=== PATIENT | male | born 1940 | race Caucasian/White ===

== ENCOUNTER 2020-04-23 09:07 | Outpatient (CLI) | payer MEDICARE, BC, SELFPAY ==
--- NOTE | 2020-04-23 09:15 | XR_ITS ---
WS: [id number] XR KUB [id number] REASON FOR EXAM: UROLITHIASIS FINDINGS: Examination is unchanged compared to 04/19/2018. No urinary tract calculi are identified. Moderate amount of stool throughout the colon. No free air or retroperitoneal air. No mass is identified. No significant bony abnormality. XR/XR KUB [id number] IMPRESSION: No urinary tract calculi identified.
== END 2020-04-23 09:08 | disposition home or self-care (01) ==
LOC: RAD 09:13
PROVIDERS: PCP Family Medicine; Visit Provider Urology
DX: N20.9 Urinary calculus, unspecified (principal)
CPT/HCPCS: 74018; 81003

== ENCOUNTER → 2020-11-27 14:06 | Outpatient (BNVA) | payer MEDICARE, BC, SELFPAY | PROVIDERS: PCP Family Medicine; Visit Provider Urology | DX: N20.0 Calculus of kidney (principal); N52.1 Erectile dysfunction due to diseases classified elsewhere | CPT/HCPCS: 81003 ==

== ENCOUNTER → 2021-03-26 10:05 | Outpatient (BNVA) | payer MEDICARE, BC, SELFPAY | PROVIDERS: PCP Family Medicine; Visit Provider Urology | DX: N52.1 Erectile dysfunction due to diseases classified elsewhere (principal) | CPT/HCPCS: 81003 ==

== ENCOUNTER 2021-04-23 10:08 | Outpatient (CLI) | payer MEDICARE, BC, SELFPAY ==
--- NOTE | 2021-04-23 10:15 | XRR_ITS ---
PROCEDURE INFORMATION: Exam: XR Abdomen Exam date and time: 04/23/2021 10:15 AM Age: 81 years old Clinical indication: Condition or disease; Kidney or ureter condition; Calculus (stone) in kidney; Prior surgery; Surgery type: Aneurysm, kidney stone removal; Additional info: Renal calculus TECHNIQUE: Imaging protocol: XR of the abdomen. Views: Frontal supine view of the abdomen. 1 View. COMPARISON: CR XR KUB [id number] 04/23/2020 9:22 AM FINDINGS: Gastrointestinal tract: Normal. No bowel dilation. Organs: No calcifications are seen in the projection of the kidneys, ureters or urinary bladder. Multiple phleboliths are present in the lower pelvis. Bones/joints: Unremarkable. XR/XR KUB [id number] IMPRESSION: No significant abnormality.
== END 2021-04-23 10:09 | disposition home or self-care (01) ==
LOC: RAD 10:13
PROVIDERS: PCP Family Medicine; Visit Provider Urology
DX: N20.0 Calculus of kidney (principal)
CPT/HCPCS: 74018; 81003

== ENCOUNTER → 2021-11-14 11:37 | Outpatient (BNVA) | payer MEDICARE, BC, SELFPAY | PROVIDERS: PCP Family Medicine; Visit Provider Family Medicine | DX: E78.5 Hyperlipidemia, unspecified (principal); I10 Essential (primary) hypertension; M65.30 Trigger finger, unspecified finger; K42.9 Umbilical hernia without obstruction or gangrene; M25.519 Pain in unspecified shoulder; N52.1 Erectile dysfunction due to diseases classified elsewhere; Z12.11 Encounter for screening for malignant neoplasm of colon | CPT/HCPCS: 80053; 80061; 85025 ==

== ENCOUNTER → 2021-11-19 08:39 | Outpatient (BNVA) | payer MEDICARE, BC, SELFPAY | PROVIDERS: PCP Family Medicine; Visit Provider Surgery | DX: Z12.11 Encounter for screening for malignant neoplasm of colon (principal) | CPT/HCPCS: 99203 ==

== ENCOUNTER → 2021-11-28 08:14 | Outpatient (BNVA) | payer MEDICARE, BC, SELFPAY | PROVIDERS: PCP Family Medicine; Visit Provider Family Medicine | DX: E87.5 Hyperkalemia (principal) | CPT/HCPCS: 80048 ==

== ENCOUNTER → 2022-01-20 15:00 | Outpatient (BNVA) | payer MEDICARE, BC, SELFPAY | PROVIDERS: PCP Family Medicine; Visit Provider Urology | DX: N20.9 Urinary calculus, unspecified (principal); N52.1 Erectile dysfunction due to diseases classified elsewhere | CPT/HCPCS: 99213 ==

== ENCOUNTER → 2022-01-21 08:34 | Outpatient (BNVA) | payer MEDICARE, BC, SELFPAY | PROVIDERS: PCP Family Medicine; Visit Provider Family Medicine | DX: R94.4 Abnormal results of kidney function studies (principal) | CPT/HCPCS: 80048 ==

== ENCOUNTER → 2022-02-02 10:46 | Outpatient (BNVA) | payer MEDICARE, BC, SELFPAY | PROVIDERS: PCP Family Medicine; Visit Provider Urology | DX: N20.9 Urinary calculus, unspecified (principal); N52.1 Erectile dysfunction due to diseases classified elsewhere | CPT/HCPCS: 81003 ==

== ENCOUNTER → 2022-04-22 09:37 | Outpatient (BNVA) | payer MEDICARE, BC, SELFPAY | PROVIDERS: PCP Family Medicine; Visit Provider Family Medicine | DX: I10 Essential (primary) hypertension (principal); N28.9 Disorder of kidney and ureter, unspecified | CPT/HCPCS: 80048 ==

== ENCOUNTER → 2022-07-21 14:07 | Outpatient (BNVA) | payer MEDICARE, BC, SELFPAY | PROVIDERS: PCP Family Medicine; Visit Provider Urology | DX: N52.1 Erectile dysfunction due to diseases classified elsewhere (principal); N20.9 Urinary calculus, unspecified | CPT/HCPCS: 81003; 99213 ==

== ENCOUNTER 2022-11-11 09:47 | Outpatient (CLI) | payer MEDICARE, BC, SELFPAY ==
--- NOTE | 2022-11-11 10:15 | MR_ITS ---
WS: [id number] MRI RIGHT SHOULDER HISTORY: M67.919 - Unspecified disorder of synovium and tendon, no trauma. COMPARISON: None available. TECHNIQUE: Multiplanar sequences of the shoulder joint are submitted. Moderate AC joint arthritis. Osteophytes encroaching upon the supraspinatus muscle and tendon. Small amount of fluid through the AC joint. Mild subacromial impingement. Small amount of fluid in the suba cromial and subdeltoid bursa. No os acromion. Split tear within the biceps tendon at the bicipital gr oove. Mildly high riding humeral head with mild glenohumeral joint narrowing. Marked fraying along both the bursal and articular surfaces of the supraspinatus tendon. Full thickness small tear extending throu gh the anterior most supraspinatus tendon. There is additional tendinopathy in the distal tendon. Abn ormal signal in the distal subscapularis tendon. There is marked thinning of the distal tendon with t he full-thickness tear. Infraspinatus tendon is normal. Moderate atrophy supraspinatus muscle. Degenerative changes within the labrum. Incomplete tear involving the base of the anterior labrum. MR/MR shoulder RT wo con* [id number] IMPRESSION: 1. Minimal full-thickness tear distal supraspinatus tendon with additional ten dinopathy. 2. Full-thickness tear distal subscapularis tendon with additional tendinopath y. 3. Moderate AC joint arthritis. 4. Mild subacromial impingement. 5. Split tear biceps tendon in the bicipital groove. 6. Focal tear anterior labrum. 7. Moderate supraspinatus muscle atrophy. 8. High riding humeral head and degenerative changes at the glenohumeral joint .
== END 2022-11-11 09:48 | disposition home or self-care (01) ==
PROVIDERS: PCP Family Medicine; Visit Provider Family Medicine
DX: M75.121 Complete rotator cuff tear or rupture of right shoulder, not specified as traumatic (principal); M67.919 Unspecified disorder of synovium and tendon, unspecified shoulder; M19.011 Primary osteoarthritis, right shoulder; M75.41 Impingement syndrome of right shoulder; S46.211A Strain of muscle, fascia and tendon of other parts of biceps, right arm, initial encounter; S43.491A Other sprain of right shoulder joint, initial encounter; S46.811A Strain of other muscles, fascia and tendons at shoulder and upper arm level, right arm, initial encounter; X58.XXXA Exposure to other specified factors, initial encounter; M62.511 Muscle wasting and atrophy, not elsewhere classified, right shoulder
CPT/HCPCS: 73221

== ENCOUNTER 2023-07-28 14:04 | Outpatient (CLI) | payer MEDICARE, BC, SELFPAY ==
--- NOTE | 2023-07-28 14:09 | USCV_ITS ---
Caleb Thomas Age: 83 Gender: M : 1940 Exam Date: 07/28/2023 14:22 Ordering Phys: Renetta Hearn MD Technologist: [place]am [place] [facility] [place] Indication: MURMUR BP: 150 / 80 HR: 48 Rhythm: Sinus Technical Quality: Adequate MEASUREMENTS (Male / Female) Normal Values 2D ECHO LV Diastolic Diameter PLAX 3.7 cm 4.2 - 5.9 / 3.9 - 5.3 cm IVS Diastolic Thickness 1.3 cm 0.6 - 1.0 / 0.6 - 0.9 cm IVS Systolic Thickness 1.6 cm LVPW Diastolic Thickness 1.3 cm 0.6 - 1.0 / 0.6 - 0.9 cm LVPW Systolic Thickness 1.3 cm LVOT Diameter 2.0 cm LV Ejection Fraction 2D Teich 3.2 % LV Ejection Fraction MOD 2C 58.5 % LV Ejection Fraction 2C AL 59.8 % LA Diameter 2.9 cm RA Systolic Volume 4C AL 26.9 ml RA Systolic Volume 4C MOD 25.7 ml Aorta at Sinotubular Diameter 2.7 cm IVC Diameter 2.6 cm M-MODE LA Ao Ratio MM 0.8 AV Cusp Separation MM 2.6 cm DOPPLER AV Peak Velocity 212.0 cm/s LVOT Peak Velocity 100.0 cm/s AV Area Cont Eq vti 1.6 cm squared AV Area Cont Eq pk 1.5 cm squared MV Peak Velocity 94.0 cm/s MV Area PHT 1.5 cm squared Mitral E to A Ratio 1.4 TV Peak Velocity 136.5 cm/s TR Peak Velocity 205.0 cm/s TR Peak Gradient 16.8 mmHg Right Atrial Pressure 3.0 mmHg Pulmonary Artery Systolic Pressu 19.8 mmHg PV Peak Velocity 98.0 cm/s FINDINGS Left Ventricle Moderate left ventricular hypertrophy. Normal left ventricular size and systolic function, EF 58% Right Ventricle The right ventricle is normal in size and function. Right Atrium The right atrium is normal in size. Left Atrium The left atrium is normal in size. Mitral Valve Thickened mitral valve. Mild-moderate mitral valve regurgitation. Aortic Valve Aortic valve sclerosis. Tricuspid Valve Trace tricuspid valve regurgitation. Pulmonic Valve No gross abnormalities noted Pericardium Normal pericardium without effusion. Aorta Normal ascending aorta dimension. IVC Normal inferior vena cava. CONCLUSIONS Moderate left ventricular hypertrophy. Normal left ventricular size and systolic function, EF 58% . Aortic valve sclerosis. Thickened mitral valve. Mild-moderate mitral valve regurgitation. Trace tricuspid valve regurgitation. Estimated pulmonary artery peak systolic pressure within normal limits There is no pericardial effusion. There are no intracardiac masses. No similar previous studies are available for comparison Dr Favio Soriano MD FAC (Electronically Signed) Final Date: 30 July 2023 17:12 S
== END 2023-07-28 14:05 | disposition home or self-care (01) ==
LOC: RAD 14:05
PROVIDERS: PCP Family Medicine; Visit Provider Internal Medicine Interventional Cardiology
DX: Z01.818 Encounter for other preprocedural examination (principal); I08.0 Rheumatic disorders of both mitral and aortic valves
CPT/HCPCS: 93306

== ENCOUNTER 2023-09-08 06:00 | Outpatient (RCR) | payer MEDICARE, BC, SELFPAY | END 2023-10-08 23:59 | disposition home or self-care (01) | LOC: APT 06:00 | PROVIDERS: Visit Provider Nurse Practitioner Adult Health | DX: Z47.1 Aftercare following joint replacement surgery (principal); Z96.611 Presence of right artificial shoulder joint | CPT/HCPCS: 97110; 97140; 97161; 97530 ==

== ENCOUNTER 2023-10-09 06:00 | Outpatient (RCR) | payer MEDICARE, BC, SELFPAY | END 2023-11-07 23:59 | disposition home or self-care (01) | LOC: APT 06:00 | PROVIDERS: Visit Provider Nurse Practitioner Adult Health | DX: Z47.1 Aftercare following joint replacement surgery (principal); Z96.611 Presence of right artificial shoulder joint | CPT/HCPCS: 97110; 97112; 97140; 97530 ==

== ENCOUNTER 2023-11-08 06:00 | Outpatient (RCR) | payer MEDICARE, BC, SELFPAY | END 2023-12-08 23:59 | disposition home or self-care (01) | LOC: APT 06:00 | PROVIDERS: Visit Provider Nurse Practitioner Adult Health | DX: Z47.1 Aftercare following joint replacement surgery (principal); Z96.611 Presence of right artificial shoulder joint | CPT/HCPCS: 97110; 97112; 97140; 97530 ==

== ENCOUNTER 2024-05-21 10:41 | Inpatient (IN) | payer MEDICARE, BC, SELFPAY ==
[2024-05-21] VITALS (16 sets, daily range): BP systolic 154–191; BP diastolic 72–100; PULSE 41–62; RESP 10–24; TEMP 36.3–36.4; O2SAT 93–99; BMI 20.9
--- NOTE | 2024-05-21 11:01 | ECG_ITS ---
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 Measurements Intervals [place] Rate: 53 P: 55 CA: 167 QRS: -51 QRSD: 113 T: 46 QT: 447 QTc: 423 Interpretive Statements SINUS BRADYCARDIA WITH FREQUENT VENTRICULAR PREMATURE COMPLEXES S1-S2-S3 PATTERN, CONSISTENT WITH PULMONARY DISEASE, RVH, OR NORMAL VARIANT LEFT ANTERIOR FASCICULAR BLOCK [QRS AXIS <= -45, QR IN I, RS IN II] MINIMAL ST DEPRESSION [0.025+ mV ST DEPRESSION] Compared to ECG 09/10/2017 11:10:04 Ventricular premature complex(es) now present Right ventricular hypertrophy now present ST (T wave) deviation now present Myocardial infarct finding no longer present Electronically Signed On 05-23-2024 23:56:49 COOLING PAN TENDER by Favio Soriano M.D. [id number]
--- NOTE | 2024-05-21 11:07 | XRR_ITS ---
PROCEDURE INFORMATION: Exam: XR Chest Exam date and time: 05/21/2024 11:13 AM Age: 84 years old Clinical indication: Shortness of breath; Prior surgery; Surgery date: 6+ months; Patient HX: C/O dizziness and palpitations for the past week. Intermittent SOB and has noticed that his oxygen sats have been low at home (93-94%). PT states that his hr does run low and was told that he needed a pacemaker in the past - didn't want it. Denies chest pain. HX aaa repair 20 yrs ago. ; Additional info: Short of breath TECHNIQUE: Imaging protocol: Radiologic exam of the chest. Views: 1 view. Total images: 1 COMPARISON: CT angio chest abd [id number] 11/15/2017 8:31 AM FINDINGS: Lungs: Benign granulomatous disease of the lung is noted. Pleural spaces: Unremarkable. No pleural effusion. No pneumothorax. Heart/Mediastinum: Unremarkable. No cardiomegaly. Vasculature: Moderate atherosclerotic disease burden is evident. Bones/joints: Right shoulder prosthesis partially visualized. Soft tissues: Postsurgical changes noted along the left chest wall unchanged. XR/XR chest 1V portable [id number] IMPRESSION: No acute cardiopulmonary process.
[2024-05-21 11:19] LABS: Basophils # 0.1 10^3/uL (0.0-0.1); Basophils % 1.1 %; Eosinophils # 0.4 10^3/uL (0.0-0.8); Eosinophils % 5.3 %; Lymphocytes # 2.2 10^3/uL (0.8-4.8); Lymphocytes % 30.2 %; Mean Corpuscular HGB Conc 32.7 g/dL (30-55); Mean Corpuscular Hemoglobin 31.9 pg (27-33); Mean Corpuscular Volume 97.6 fl (82-101); Mean Platelet Volume 9.5 fL (7.4-10.4); Monocytes # 0.6 10^3/uL (0.2-0.9); Monocytes % 8.8 %; Neutrophils # 3.89 10^3/uL (1.8-7.7); Neutrophils % 54.2 %; Nucleated Red Blood Cells % 0 %; Platelet Count 232 10^3/cmm (157-399); Red Blood Count 4.51 10^6/uL (3.85-5.65); Red Cell Distribution Width 12.7 % (12.1-15.1); White Blood Count 7.18 10^3/uL (3.29-11.43)
[2024-05-21 11:39] LABS: Troponin(5th) Baseline 12 ng/L (0-15)
[2024-05-21 11:46] LABS: Alanine Aminotransferase 12 U/L (0-41); Albumin Level 4.2 g/dL (3.5-5.2); Alkaline Phosphatase 97 U/L (40-130); Anion Gap 13.2 (5-19); Aspartate Amino Transferase 19 U/L (0-40); Blood Urea Nitrogen 26 mg/dL (8-23); Calcium 9.3 mg/dL (8.5-10.5); Carbon Dioxide 26 mmol/L (22-29); Chloride 105 mmol/L (98-107); Creatinine Clr Calc Pharmacy 56.3077; Globulin 2.8 g/dL (1.3-4.6); Glucose 93 mg/dL (65-115); Magnesium 1.9 mg/dL (1.7-2.3); NT Pro B Type Natriuretic Pept 152 pg/mL (0-450); Osmolality Calculated 294 mOsm/kg (285-295); Potassium 4.2 mmol/L (3.5-5.1); Sodium 140 mmol/L (136-145); Thyroid Stimulating Hormone 3.21 uIU/mL (0.27-4.20); Total Bilirubin 0.4 mg/dL (0.15-1.2)
[2024-05-21 13:07] LABS: Bilirubin Urine Negative (Negative); Blood Urine Negative (Negative); Glucose Urine UA Negative (Normal); Ketones Urine Negative (Negative); Leukocyte Esterase Urine Negative (Negative); Nitrate Urine Negative (Negative); Protein Urine 1+ (Negative); Specific Gravity, Urine 1.022 (1.005-1.030); Urine Appearance Clear (CLEAR); Urine Color Yellow (Yellow); Urobilinogen Urine 0.2 mg/dL (Negative); pH Urine 5.5 (5-7)
[2024-05-21 13:10] LABS: Add Urine Microscopic? YES; Bacteria Urine None Seen /hpf; Hyaline Casts Urine 0-4 /lpf; RBC Urine 0-2 /hpf (0-2); Squamous Epithelial Cell Urine 0-5 /hpf (0-5); WBC Urine 0-5 /hpf (0-5)
--- NOTE | 2024-05-21 13:16 | ED_ITS ---
HPI - Dizziness 2 General: Chief Complaint: Dizziness Stated Complaint: dizziness Time Seen by Provider: 05/21/24 11:06 History of Present Illness: HPI Narrative: 84-year-old male presents emergency depa rtment reporting episodes of dizziness and fatigue. 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 He was asked in the past whether he wanted to have a pacemaker; patient reports he was asymptomatic and therefore declined pacemaker. However, over the last week, something is changed and he now feels an irregular heartbeat, dizziness, fatigue. He has not had any chest pain, pressure, syncope, diaphoresis nausea or vomiting. He has no known heart disease other than some mild mitral valve disease. He does not take any beta-blockers or calcium channel blockers. He reports no neurologic symptoms nor any vertigo. He has not had any falls. Patient reports that his blood pressure machine is alarming him that he has an irregular pulse. Associated symptoms: Denies chest pain, chills, headache(s), nausea, syncope or vomiting Associated neuro symptoms: Deny numbness in extremities Related Data Home Medications Medication Instructions Recorded Confirmed tamsulosin 0.4 mg capsule 0.4 mg PO DAILY PRN 01/20/22 01/26/23 Previous Rx's Medication Instructions Recorded meloxicam 7.5 mg tablet 7.5 mg PO DAILY arthritis, 11/14/21 shoulder pain #20 tabs sildenafil 100 mg tablet (Viagra) 100 mg PO DAILY PRN sexual 06/01/22 activity #20 tabs tadalafil 20 mg tablet 20 mg PO DAILY PRN sexual activity 01/26/23 #90 tabs mupirocin 2 % topical ointment 1 applic topical BID #22 grams 10/25/23 lisinopril 20 mg tablet 60 mg (3 x 20 mg) .Route DAILY htn 11/19/23 90 days #270 tabs omeprazole 20 mg capsule,delayed See Rx Instructions .Route 11/19/23 release .COMPLEX #180 caps atorvastatin 10 mg tablet See Rx Instructions .Route 03/06/24 .COMPLEX #90 tabs Allergies Allergy/AdvReac Type Severity Reaction Status Date / Time No Known Allergies Allergy Unverified 06/29/23 09:24 Review of Systems 2 General: Reports: 10 or more systems reviewed and unremarkable except in HPI and below Const: Denies: fever(s), chills or body aches ENMT: Denies: throat pain Card: Denies: chest pain, edema or syncope Resp: Denies: dyspnea or productive cough GI: Denies: abdominal pain, nausea, vomiting or diarrhea : Denies: flank pain, dysuria or urinary frequency Musc: Denies: neck pain, back pain, extremity pain or extremity swelling Skin/Breast: Denies: rash or erythema Neuro: Denies: headache(s), numbness in extremities, weakness in extremities, lack of coordination or difficulty walking PFSH ED 2 PFSH: Medical History (Updated 05/21/24 @ 13:33 by Jamarcus Vargas MD) Arthritis Glaucoma HTN (hypertension) Hyperlipidemia GERD (gastroesophageal reflux disease) Urolithiasis Erectile disorder due to medical condition in male Surgical History Hx of colonoscopy 10 yrs ago History of esophagogastroduodenoscopy (EGD) 10 yrs ago possibly History of extraction of renal calculus S/P AAA repair Family History Father , AGE 74 Cancer Mother , at age 84 No problems noted. 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 He does have bradycardia with frequent PVCs on the monitor and in the regular pulse on palpation. Const: COMMON NORMALS: no limitations, alert and well nourished EXAM LIMITATIONS: no altered mental status HENMT: COMMON NORMALS: normocephalic, atraumatic and external ears normal H EAD & SCALP: normocephalic and atraumatic EXTERNAL EAR: Yes external ears normal MOUTH: no muffled voice Eye: COMMON NORMALS: EOMs intact bilaterally, conjunctivae normal and no scleral icterus CONJUNCTIVA: Yes conjunctivae normal Neck/C-Spine: COMMON NORMALS: no JVD GENERAL: Yes normal visual inspection and Yes trachea midline Resp: COMMON NORMALS: normal respiratory effort, No use of accessory muscles and clear to auscultation bilaterally AUSCULTATION: clear to auscultation bilaterally Cardio: COMMON NORMALS: no JVD GI: COMMON NORMALS: Soft to palpation and non-tender PALPATION: Yes Soft to palpation and No Guarding due to palpation present (GI) Extremity: COMMON NORMALS: normal to inspection Neuro: COMMON NORMALS: moves all extremities, no focal motor deficits and no sensory deficits noted SENSORIUM/ORIENTATION: Yes alert SPEECH: speech normal Psych: COMMON NORMALS: mental status grossly normal, Normal thought process present, cooperative, normal affect and speech normal SPEECH: Yes normal speech THOUGHT PROCESS: Normal thought process present Skin: COMMON NORMALS: no rashes or lesions noted, turgor normal and no jaundice GENERAL SKIN EXAM: no rashes or lesions noted and turgor normal Course 2 Vital Signs: Vital signs: Vital Signs Temperature 97.4 F L 05/21/24 10:51 Pulse Rate 47 L 05/21/24 13:00 Respiratory Rate 16 05/21/24 13:00 Blood Pressure 184/90 05/21/24 13:00 Pulse Oximetry 99 05/21/24 13:00 Oxygen Delivery Me thod Room Air 05/21/24 13:00 MDM - Dizziness Medical Decision Making Patient presenting with nonspecific dizziness. He has an irregular rhythm on exam and a bradycardia. His EKG which was obtained at 10:55 AM shows a sinus bradycardia with frequent PVCs. During the examination, patient had PVCs every 4-5 beats. Patient reports he can feel these and thinks this is what is causing his symptoms. The patient's electrolytes, blood sugar, acid-base status, hemoglobin, white blood cell count, TSH were all reassuring. Low suspicion for PE, unstable angina, pneumonia, neurologic dizziness. The patient's neurologic examination was normal. He has normal strength, normal coordination in his extremities, no aphasia, no visual disturbances Chest x-ray 1 view. No pulmonary edema, infiltrates, pneumothorax or effusions. This appears very likely to be related to his bradycardia with frequent PVCs. I discussed the case with Dr. Naranjo, director regulatory affairs. He advises that the patient be admitted overnight for telemetry. He is worried that the patient may intermittently have a heart block and wants to evaluate for this. If the patient is stable after a period of observation, then he may be a candidate for discharge and cardiology follow-up in clinic. However, if he is symptomatic or is developing heart block or other concerns, then the patient may need more timely cardiac intervention and possibly pacemaker. Discussed with patient and his . They are in agreement with the plan. Lab Data 05/21/24 11:10 05/21/24 11:10 Radiology Impressions Chest X-Ray 05/21/24 11:07 IMPRESSION: No acute cardiopulmonary process. Laboratory Results WBC 7.18 10^3/uL (3.29-11.43) 05/21/24 11:10 RBC 4.51 10^6/uL (3.85-5.65) 05/21/24 11:10 Hgb 14.40 g/dL (11.27-16.99) 05/21/24 11:10 Hct 44.0 % (37-53) 05/21/24 11:10 MCV 97.6 fl (82-101) 05/21/24 11:10 MCH 31.9 pg (27-33) 05/21/24 11:10 MCHC 32.7 g/dL (30-55) 05/21/24 11:10 RDW 12.7 % (12.1-15.1) 05/21/24 11:10 Plt Count 232 10^3/cmm (157-399) 05/21/24 11:10 MPV 9.5 fL (7.4-10.4) 05/21/24 11:10 Neut % (Auto) 54.2 % 05/21/24 11:10 Lymph % (Auto) 30.2 % 05/21/24 11:10 [place] % (Auto) 8.8 % 05/21/24 11:10 Eos % (Auto) 5.3 % 05/21/24 11:10 Baso % (Auto) 1.1 % 05/21/24 11:10 Neut # (Auto) 3.89 10^3/uL (1.8-7.7) 05/21/24 11:10 Lymph # (Auto) 2.2 10^3/uL (0.8-4.8) 05/21/24 11:10 [place] # (Auto) 0.6 10^3/uL (0.2-0.9) 05/21/24 11:10 Eos # (Auto) 0.4 10^3/uL (0.0-0.8) 05/21/24 11:10 Baso # (Auto) 0.1 10^3/uL (0.0-0.1) 05/21/24 11:10 Nucleated RBC % (auto) 0 % 05/21/24 11:10 Nucleated RBCs # 0.0 /100WBC 05/21/24 11:10 Sodium 140 mmol/L (136-145) 05/21/24 11:10 Potassium 4.2 mmol/L (3.5-5.1) 05/21/24 11:10 Chloride 105 mmol/L (98-107) 05/21/24 11:10 Carbon Dioxide 26 mmol/L (22-29) 05/21/24 11:10 Anion Gap 13.2 (5-19) 05/21/24 11:10 BUN 26 mg/dL (8-23) H 05/21/24 11:10 Creatinine 1.0 mg/dL (0.7-1.2) 05/21/24 11:10 GFR Calculation Not Reportable 05/21/24 11:10 Glucose 93 mg/dL (65-115) 05/21/24 11:10 Calculated Osmolality 294 mOsm/kg (285-295) 05/21/24 11:10 Calcium 9.3 mg/dL (8.5-10.5) 05/21/24 11:10 Magnesium 1.9 mg/dL (1.7-2.3) 05/21/24 11:10 Total Bilirubin 0.4 mg/dL (0.15-1.2) 05/21/24 11:10 AST 19 U/L (0-40) 05/21/24 11:10 ALT 12 U/L (0-41) 05/21/24 11:10 Alkaline Phosphatase 97 U/L (40-130) 05/21/24 11:10 Troponin T Baseline 12 ng/L (0-15) 05/21/24 11:10 NT-Pro-B Natriuret Pep 152 pg/mL (0-450) 05/21/24 11:10 Total Protein 7.0 g/dL (6.6-8.7) 05/21/24 11:10 Albumin 4.2 g/dL (3.5-5.2) 05/21/24 11:10 Globulin 2.8 g/dL (1.3-4.6) 05/21/24 11:10 TSH 3.21 uIU/mL (0.27-4.20) 05/21/24 11:10 Urine Color Yellow (Yellow) 05/21/24 12:30 Urine Appearance Clear (CLEAR) 05/21/24 12:30 Urine pH 5.5 (5-7) 05/21/24 12:30 Ur Specific [place] 1.022 (1.005-1.030) 05/21/24 12:30 Urine Protein 1+ (Negative) A 05/21/24 12:30 Urine Glucose (UA) Negative (Normal) 05/21/24 12:30 Urine Ketones Negative (Negative) 05/21/24 12:30 Urine Blood Negative (Negative) 05/21/24 12:30 Urine Nitrate Negative (Negative) 05/21/24 12:30 Urine Bilirubin Negative (Negative) 05/21/24 12:30 Urine Urobilinogen 0.2 mg/dL (Negative) 05/21/24 12:30 Ur Leukocyte Esterase Negative (Negative) 05/21/24 12:30 Urine RBC 0-2 /hpf (0-2) 05/21/24 12:30 Urine WBC 0-5 /hpf (0-5) 05/21/24 12:30 Ur Squamous Epith Cells 0-5 /hpf (0-5) 05/21/24 12:30 Amorphous Sediment Not Reportable 05/21/24 12:30 Urine Bacteria None seen /hpf (NONE) 05/21/24 12:30 Hyaline Casts 0-4 /lpf H 05/21/24 12:30 All radiology interpretation(s) finalized by discharge Discharge Plan Discharge Patient Disposition: Placed in Observation Clinical Impression: Symptomatic PVCs, Bradycardia, Dizziness Condition: Stable Prescriptions: No Action meloxicam 7.5 mg tablet 7.5 mg PO DAILY Qty: 20 0RF tamsulosin 0.4 mg capsule 0.4 mg PO DAILY PRN tadalafil 20 mg tablet 20 mg PO DAILY PRN (Reason: sexual activity) Qty: 90 3RF Rx Instructions: take 30min before sexual activity; do not use more than 1 dose per 24hrs sildenafil [Viagra] 100 mg tablet 100 mg PO DAILY PRN (Reason: sexual activity) Qty: 20 12RF Rx Instructions: 1 hour before use on empty stomach. No nitroglycerin mupirocin 2 % ointment 1 applic topical BID Qty: 22 0RF omeprazole 20 mg capsule,delayed release(DR/EC) See Rx Instructions .ROUTE .COMPLEX Qty: 180 3RF Dose Instruction: TAKE ONE CAPSULE BY MOUTH TWICE DAILY Rx Instructions: TAKE ONE CAPSULE BY MOUTH TWICE DAILY lisinopril 20 mg tablet 60 mg .ROUTE DAILY 90 Days Qty: 270 1RF Rx Instructions: 60 mg daily; take up to 3 tabs a day, as needed. atorvastatin 10 mg tablet See Rx Instructions .ROUTE .COMPLEX Qty: 90 3RF Dose Instruction: TAKE ONE TABLET BY MOUTH DAILY Rx Instructions: TAKE ONE TABLET BY MOUTH DAILY Coding Level of Care Code ED [employer] Ii Assembler for Andrew Orosco
--- NOTE | 2024-05-21 13:29 | ECG_ITS ---
[facility] Date: 2024-05[facility]21 Pat Name: Caleb Thomas Department: Room: Gender: Male Medical Support Assistant: : 1940 Requested By: Jamarcus Vargas Order Number: [id number] Reading MD: JENNIFER EAST Measurements Intervals [employer] Rate: 44 P: 47 UT: 177 QRS: -55 QRSD: 114 T: 30 QT: 497 QTc: 428 Interpretive Statements SINUS BRADYCARDIA WITH OCCASIONAL VENTRICULAR PREMATURE COMPLEXES S1-S2-S3 PATTERN, CONSISTENT WITH PULMONARY DISEASE, RVH, OR NORMAL VARIANT PATTERN CONSISTENT WITH PULMONARY DISEASE LEFT ANTERIOR FASCICULAR BLOCK [QRS AXIS <= -45, QR IN I, RS IN II] MINIMAL ST DEPRESSION [0.025+ mV ST DEPRESSION] Compared to ECG 05/21/2024 10:55:52 No significant changes Electronically Signed On 05-29-2024 23:32:31 CHAIN SPLITTER by JENNIFER EAST [id number]
[2024-05-21 13:30] LABS: Troponin 5 2HR 13.32 ng/L (0-15); Troponin 5 2HR Delta 1.32 ABS# (0-10)
--- NOTE | 2024-05-21 14:13 | USCV_ITS ---
Caleb Thomas Age: 84 Gender: M : 1940 Exam Date: 05/21/2024 15:05 Ordering Phys: Charles Sloan MD Technologist: Arik Colin [place] [facility] [place]: bradycardia BP: 178 / 101 HR: 42 Rhythm: Sinus Technical Quality: Adequate MEASUREMENTS (Male / Female) Normal Values 2D ECHO LV Diastolic Diameter PLAX 5.7 cm 4.2 - 5.9 / 3.9 - 5.3 cm IVS Diastolic Thickness 1.4 cm 0.6 - 1.0 / 0.6 - 0.9 cm IVS Systolic Thickness 1.7 cm LVPW Diastolic Thickness 1.3 cm 0.6 - 1.0 / 0.6 - 0.9 cm LVPW Systolic Thickness 2.6 cm LVOT Diameter 2.1 cm LV Ejection Fraction 2D Teich 65.5 % LV Ejection Fraction MOD 4C 62.6 % LV Ejection Fraction MOD 2C 61.3 % LV Ejection Fraction 2C AL 62.9 % LA Diameter 3.4 cm RA Systolic Volume 4C AL 34.2 ml RA Systolic Volume 4C MOD 35.0 ml LA Sys Volume AL 34.1 cm cubed LA Sys Volume Index AL 18.4 cm cubed/m squared IVC Diameter 1.6 cm M-MODE LA Ao Ratio MM 0.7 AV Cusp Separation MM 1.7 cm DOPPLER AV Peak Velocity 182.0 cm/s LVOT Peak Velocity 74.0 cm/s AV Area Cont Eq vti 1.5 cm squared AV Area Cont Eq pk 1.5 cm squared MV Peak Velocity 99.0 cm/s MV Area PHT 3.5 cm squared Mitral E to A Ratio 3.4 TV Peak Velocity 297.0 cm/s TR Peak Velocity 382.0 cm/s TR Peak Gradient 58.4 mmHg TR Mean Velocity 291.0 cm/s TR Mean Gradient 36.9 mmHg TR Velocity Time Integral 129.8 cm PV Peak Velocity 68.0 cm/s RV Ejection Time 0.3 s FINDINGS Left Ventricle Normal left ventricular size, systolic function and wall thickness, with no regional wall motion abnormalities. Left ventricular ejection fraction is estimated at 55%. Right Ventricle The right ventricle is normal in size and function. Right Atrium The right atrium is normal in size. Left Atrium The left atrium is normal in size. Mitral Valve Mildly thickened mitral valve. No mitral valve stenosis. Mild mitral valve regurgitation. Aortic Valve Moderate aortic valve calcification. No aortic valve stenosis. Trace aortic valve regurgitation. Tricuspid Valve Trace tricuspid valve regurgitation. Pulmonic Valve Trace pulmonary valve regurgitation. Pericardium Normal pericardium without effusion. Aorta Normal ascending aorta dimension. IVC The inferior vena cava appears normal. CONCLUSIONS Normal left ventricular size, systolic function and wall thickness, with no regional wall motion abnormalities. Left ventricular ejection fraction is estimated at 55%. Mildly thickened mitral valve. No mitral valve stenosis. Mild mitral valve regurgitation. Moderate aortic valve calcification. No aortic valve stenosis. Trace aortic valve regurgitation. There is no pericardial effusion. Right atrial pressure is around 5 mm of mercury. Chaitanya Tang MD (Electronically Signed) Final Date: 21 May 2024 18:19 S
--- NOTE | 2024-05-21 14:13 | PM.HP ---
Providers/Chief Complaint Chief Complaint: dizziness History of Present Illness Caleb Thomas is a 84 year old male with a past medical history of hypertension, hyperlipidemia history of bradycardia who presents to [facility] due to dizziness, unsteadiness. Patient tells me that he is very physically active, he was in the he has always been told that he has bradycardia, there has been discussions in the past about pacemaker placement in the past, which he has fought against, but he is always done well nonetheless, he has required some hospitalizations for bradycardia but always did well he tells me. He tells me that for the last 2 days he has been having dizziness, intermittently, but becoming more progressive and significant, no syncope, but feeling of a skipped beat, feeling dizzy, more profound when changing position, no chest pain, no nausea, no vomiting, no headache, no blurry vision, no diaphoresis. He tells me that if he needs a pacemaker placed he is agreeable, he just wants this to be done with, as he is very physically active, he tells me on Wednesday he was cutting logs, and he wants to get back to his life he does not want this to be something that holds him back. Denies a cardiovascular history no stents placed in his heart no history of heart failure no history of strokes. Review of Systems Const: Denies: fever(s) or chills Card: Reports: palpitations and lightheadedness; Denies: chest pain or dyspnea on exertion GI: Denies: abdominal pain Medications/Allergies Home Medications Medication Instructions Recorded Confirmed Last Taken Type meloxicam 7.5 mg tablet 7.5 mg PO DAILY arthritis, 11/14/21 01/26/23 Unknown Rx shoulder pain #20 tabs tamsulosin 0.4 mg capsule 0.4 mg PO DAILY PRN 01/20/22 01/26/23 Unknown History sildenafil 100 mg tablet (Viagra) 100 mg PO DAILY PRN sexual 06/01/22 01/26/23 Unknown Rx activity #20 tabs tadalafil 20 mg tablet 20 mg PO DAILY PRN sexual activity 01/26/23 01/26/23 Unknown Rx #90 tabs mupirocin 2 % topical ointment 1 applic topical BID #22 grams 10/25/23 Unknown Rx lisinopril 20 mg tablet 60 mg (3 x 20 mg) .Route DAILY htn 11/19/23 Unknown Rx 90 days #270 tabs omeprazole 20 mg capsule,delayed See Rx Instructions .Route 11/19/23 Unknown Rx release .COMPLEX #180 caps atorvastatin 10 mg tablet See Rx Instructions .Route 03/06/24 Unknown Rx .COMPLEX #90 tabs Allergies Allergy/AdvReac Type Severity Reaction Status Date / Time No Known Allergies Allergy Unverified 06/29/23 09:24 PFSH Acute PFSH: Medical History Arthritis Glaucoma HTN (hypertension) Hyperlipidemia GERD (gastroesophageal reflux disease) Urolithiasis Erectile disorder due to medical condition in male Surgical History Hx of colonoscopy 10 yrs ago History of esophagogastroduodenoscopy (EGD) 10 yrs ago possibly History of extraction of renal calculus S/P AAA repair Family History Father , AGE 74 Cancer Mother , at age 84 No problems noted. 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 Current gender identity: Male Vitals/I&O/Wt Last Vital Signs Temp 97.4 F L 05/21/24 10:51 Pulse 49 L 05/21/24 13:30 Resp 16 05/21/24 13:30 BP 178/83 05/21/24 13:30 Pulse Ox 96 05/21/24 13:30 O2 Del Method Room Air 05/21/24 13:30 Weight last 48 hrs Weight 68.039 kg Physical Exam Const: COMMON NORMALS: no acute distress and patient oriented x3 HENMT: COMMON NORMALS: normocephalic HEAD & SCALP: normocephalic Eye: COMMON NORMALS: Equal, round and reactive pupils present and EOMs intact bilaterally Neck/C-Spine: COMMON NORMALS: no JVD Resp: COMMON NORMALS: normal respiratory effort, No retractions, No use of accessory muscles and clear to auscultation bilaterally AUSCULTATION: clear to auscultation bilaterally Cardio: COMMON NORMALS: regular rate, regular rhythm, S1 normal heart sound present and S2 normal heart sound present RATE: bradycardic RHYTHM: regular rhythm HEART SOUNDS: S1 normal heart sound present and S2 normal heart sound present GI: COMMON NORMALS: Normal to inspection, nondistended, normoactive bowel sounds present, Soft to palpation and non-tender Extremity: COMMON NORMALS: no calf tenderness and no pedal edema Neuro: COMMON NORMALS: patient oriented x3, CN's II-XII intact bilaterally and moves all extremities Psych: COMMON NORMALS: mental status grossly normal Data 05/21/24 11:10 05/21/24 11:10 A&P Assessment and plan (1) Bradycardia: (2) Symptomatic PVCs: Plan Bradycardia, dizziness, symptomatic PVCs -Plan -Telemetry monitoring -Serial EKGs, troponins, telemetry monitoring -Cardiac echo -TSH, mag, lipid panel -Atropine as needed for heart rate less than 60, with hypotension, with symptoms -Full code -Lovenox for DVT prophylaxis -Patient is agreeable if pacemaker placement is required Attestations Medical Necessity Statement*: Patient requires hospitalization, outpatient observation, due to bradycardia, dizziness, symptomatic PVCs Diagnoses Bradycardia R00.1 Symptomatic PVCs I49.3
[2024-05-21 14:51] LABS: NT Pro B Type Natriuretic Pept 158 pg/mL (0-450)
--- NOTE | 2024-05-21 16:43 | PC.NURSE ---
pt given sandwich, jello, pudding and coke to eat and drink. Dr. Vargas aware and okayed.
[2024-05-21 17:22] LABS: Troponin 5 6HR 12.78 ng/L (0-15); Troponin 5 6HR Delta 0.78 ng/L (0-12)
--- NOTE | 2024-05-21 17:22 | ECG_ITS ---
[facility] Date: 2024-05[facility]21 Pat Name: Caleb Thomas Department: Room: EDIP Gender: Male Manager Community: : 1940 Requested By: Jamarcus Vargas Order Number: [id number] Reading MD: JENNIFER EAST Measurements Intervals [place] Rate: 54 P: 56 UT: 181 QRS: -87 QRSD: 122 T: 68 QT: 451 QTc: 431 Interpretive Statements SINUS BRADYCARDIA WITH OCCASIONAL VENTRICULAR PREMATURE COMPLEXES LEFT ANTERIOR FASCICULAR BLOCK [QRS AXIS <= -45, QR IN I, RS IN II] POSSIBLE LATERAL MYOCARDIAL INFARCTION , OF INDETERMINATE AGE [30 ms Q WAVE IN I/aVL/V5/V6] Compared to ECG 05/21/2024 13:29:51 Myocardial infarct finding now present Right ventricular hypertrophy no longer present ST (T wave) deviation no longer present Electronically Signed On 05-29-2024 23:32:27 STAMPING DIE MAKER BENCH by JENNIFER EAST [email or web address]
[2024-05-21] MEDS: enoxaparin 40 mg/0.4 mL Syringe SUBCUT (20:19)
[2024-05-21] MEDS: pantoprazole 40 mg SDV IVP (20:19)
[2024-05-21] MEDS: atorvastatin 40 mg Tablet 10 MG PO (20:19)
[2024-05-21 21:58] LABS: Chol HDL Ratio 2.85 mg/dL (1.0-5.00); Cholesterol 137 mg/dL (0-200); HDL Cholesterol 48 mg/dL (60-100); LDL Cholesterol Calculated 71 mg/dL (50-129); LDL HDL Ratio 1.48 RATIO (0.00-3.22); Triglycerides 88 mg/dL (0-150)
[2024-05-21 21:59] LABS: Estmated Average Glucose 117; Hemoglobin A1C 5.7 % (4.0-6.0)
[2024-05-22] VITALS: BP 129/68; PULSE 52; RESP 16; TEMP 36.6; O2SAT 93
[2024-05-22 04:00] VITALS: BP 130/72; PULSE 43; RESP 18; TEMP 36.7; O2SAT 96
[2024-05-22 05:12] LABS: Basophils # 0.1 10^3/uL (0.0-0.1); Basophils % 0.9 %; Eosinophils # 0.5 10^3/uL (0.0-0.8); Eosinophils % 6.1 %; Hematocrit 40.6 % (37-53); Lymphocytes # 2.5 10^3/uL (0.8-4.8); Lymphocytes % 33.6 %; Mean Corpuscular HGB Conc 32.5 g/dL (30-55); Mean Corpuscular Hemoglobin 32.8 pg (27-33); Mean Platelet Volume 9.9 fL (7.4-10.4); Monocytes # 0.7 10^3/uL (0.2-0.9); Monocytes % 9.3 %; Neutrophils # 3.73 10^3/uL (1.8-7.7); Neutrophils % 49.7 %; Nucleated Red Blood Cells % 0 %; Platelet Count 209 10^3/cmm (157-399); Red Blood Count 4.02 10^6/uL (3.85-5.65); Red Cell Distribution Width 12.8 % (12.1-15.1); White Blood Count 7.51 10^3/uL (3.29-11.43)
[2024-05-22 05:41] LABS: Anion Gap 12.4 (5-19); Blood Urea Nitrogen 25 mg/dL (8-23); Calcium 8.9 mg/dL (8.5-10.5); Carbon Dioxide 26 mmol/L (22-29); Chloride 107 mmol/L (98-107); Creatinine Clr Calc Pharmacy 51.1888; Glucose 99 mg/dL (65-115); Magnesium 1.9 mg/dL (1.7-2.3); Osmolality Calculated 296 mOsm/kg (285-295); Potassium 4.4 mmol/L (3.5-5.1); Sodium 141 mmol/L (136-145)
[2024-05-22] MEDS: lisinopril 20 mg Tablet 40 MG PO (08:05)
[2024-05-22 08:28] VITALS: BP 160/65; PULSE 51; RESP 18; TEMP 36.5; O2SAT 99
--- NOTE | 2024-05-22 09:30 | PC.CHAP ---
Pastoral Care Encounter/Spiritual Assessment Type of Contact [] Declined granite installer visit [] Patient/Family/Request visit [] Outpatient visit [] Follow-up visit [] Physician referral [] Code/Alert [x] Routine visit [] Staff referral [] Actively dying [] Patient sleeping [] Family support [] [] Out of room [] Palliative care [] [x] Receiving care in room [] Pre-surgical visit [] Trauma [] Long length of stay [] ICU visit [] Other: Relational/Emotional Strength [] Patient feels connected with others/family/visitors/staff [] Distress [] Loneliness/isolation [] Abandonment Spirituality of Patient [x] Person of Elysia [] Attends Synagogue of their Elysia [] Believes in Prayer [] Reads Bible or Orthodox materials [] There are Spiritual issues to be addressed Upper Cutter Out Interventions [] Prayer [] Active listening [] Non-anxious presence [] Spiritual/emotional support [] Crisis/trauma care [] Spiritual counseling [] Bereavement support [] Provided bereavement packet [] Provided Bible/devotional materials [] Provided toy/stuffed animal, coloring book to patient or family member [] Provided Communion [] Anointing/[facility] [] Salvation [] Completed spiritual assessment [] Other: Impact on Illness or Injury [] Angry [] Fearful [] Anxious [] Often cries [] Exhaustion [] Unable to work [] Unable to attend denominational [] Unable to walk/stand [] Unable to read [] Unable to drive [] Unable to eat/drink [] Unable to sleep [] Unable to be with family [] Patient intubated [] Other: Summary Time spent with patient
[2024-05-22 11:40] VITALS: BP 179/80; PULSE 52; RESP 19; TEMP 36.4; O2SAT 98
--- NOTE | 2024-05-22 14:15 | P.PN_ITS ---
Subjective 2 Subjective: Patient was seen this morning, no nausea, no vomiting, no headache, has intermittent dizziness, no other events overnight, no shortness of breath, no chest pain Vitals/I&O/Wt Last Vital Signs Temp 97.5 F L 05/22/24 11:40 Pulse 52 L 05/22/24 11:40 Resp 19 H 05/22/24 11:40 BP 179/80 05/22/24 11:40 Pulse Ox 98 05/22/24 11:40 O2 Del Method Room Air 05/22/24 11:40 05/21/24 05/22/24 05/22/24 22:59 06:59 14:59 Intake Total 120 / 120 240 / 360 960 / 960 Balance 120 / 120 240 / 360 960 / 960 Weight last 48 hrs Weight 68.039 kg Weight 68.039 kg Weight 68.039 kg Physical Exam 2 Const: COMMON NORMALS: no acute distress and patient oriented x3 Resp: COMMON NORMALS: normal respiratory effort, No retractions, No use of accessory muscles and clear to auscultation bilaterally AUSCULTATION: clear to auscultation bilaterally Cardio: COMMON NORMALS: regular rate, regular rhythm, S1 normal heart sound present and S2 normal heart sound present RATE: regular rate RHYTHM: r egular rhythm HEART SOUNDS: S1 normal heart sound present and S2 normal heart sound present GI: COMMON NORMALS: Normal to inspection, nondistended, normoactive bowel sounds present and non-tender Extremity: COMMON NORMALS: no pedal edema Neuro: COMMON NORMALS: patient oriented x3 Psych: COMMON NORMALS: mental status grossly normal Data 05/22/24 04:36 05/22/24 04:36 A&P Assessment and plan (1) Bradycardia: (2) Symptomatic PVCs: Plan Bradycardia, dizziness, symptomatic PVCs -Plan -Telemetry monitoring -Serial EKGs, troponins, telemetry monitoring -Cardiac echo CONCLUSIONS Normal left ventricular size, systolic function and wall thickness, with no regional wall motion abnormalities. Left ventricular ejection fraction is estimated at 55%. Mildly thickened mitral valve. No mitral valve stenosis. Mild mitral valve regurgitation. Moderate aortic valve calcification. No aortic valve stenosis. Trace aortic valve regurgitation. There is no pericardial effusion. Right atrial pressure is around 5 mm of mercury. -TSH, mag, lipid panel WNL -Atropine as needed for heart rate less than 60, with hypotension, with symptoms -Full code -Lovenox for DVT prophylaxis -Patient is agreeable if pacemaker placement is required -Spoke to cardiology, plan on treadmill stress echo tomorrow Attestations 2 Medical Necessity Statement*: Patient requires hospitalization for bradycardia, PVCs, proceeding with treadmill stress echo tomorrow Diagnoses Bradycardia R00.1 Symptomatic PVCs I49.3
[2024-05-22 16:00] VITALS: BP 180/74; PULSE 53; RESP 17; TEMP 36.5; O2SAT 95
[2024-05-22] MEDS: enoxaparin 40 mg/0.4 mL Syringe SUBCUT (17:41)
[2024-05-22] MEDS: pantoprazole 40 mg SDV IVP (17:41)
[2024-05-22 19:43] VITALS: BP 156/69; PULSE 54; RESP 16; TEMP 36.4; O2SAT 96
[2024-05-22] MEDS: atorvastatin 40 mg Tablet 10 MG PO (20:25)
--- NOTE | 2024-05-23 | ECG_ITS ---
[facility] Date[facility] 2024-[facility]-23 Pat Name: Caleb Thomas Department: Room: 254 Gender: Male Summer Babysitter: : 1940 Requested By: Charles Sloan Order Number: [id number] Dionisio MD: JENNIFER EAST Interpretive Statements Lung unchanged pre/post procedure; Intraprocedure shortess of breath; Symptoms resoled by discharge EXERCISE DATA: The patient was exercised by Alok protocol. Baseline heart rate was 62 beats per minute. Baseline blood pressure was 184/102 millimeters of mercury. Target heart rate was 136 beats per minute. Maximum heart rate achieved was 136, which was 100% of the target heart rate. Maximum blood pressure was 190/103 millimeters of mercury. Total exercise time was 6 minutes. Maximum METs achieved was 7.0, maximum VO2 was 24.5. The reason for ending the test was maximum effort achieved. The patient complained of shortness of breath during the stress test, which then resolved at the end of the test. ELECTROCARDIOGRAM: BASELINE: Showed sinus rhythm, left axis, interventricular conduction delay otherwise no significant ST-T changes at the baseline noted. EXERCISE: At the peak exercise level, no significant ST-T changes suggestive of ischemia noted. RECOVERY: During the recovery period, heart rate dropped appropriately. No significant ST-T changes in the recovery suggestive of ischemia noted. CONCLUSION: 1. Exercise capacity fair 2. Heart rate response was tachycardic. 3. Blood pressure response was hypertensive. 4. Symptoms not suggestive of ischemia. 5. Electrocardiogram portion of the stress test was not suggestive of ischemia. 6. Patient is chronotropically competent no intermittent heart block bradycardia noted 6. Echocardiographic portion of the stress test will be documented separately. Electronically Signed On 05-23-2024 18:02:55 OTTER TRAWLER BOATSWAIN by JENNIFER EAST [email or web address]
[2024-05-23 04:00] VITALS: BP 140/61; PULSE 52; RESP 14; TEMP 36.6; O2SAT 97
[2024-05-23 05:40] LABS: Basophils # 0.1 10^3/uL (0.0-0.1); Basophils % 0.9 %; Eosinophils # 0.4 10^3/uL (0.0-0.8); Eosinophils % 4.5 %; Hematocrit 41.1 % (37-53); Lymphocytes # 2.4 10^3/uL (0.8-4.8); Lymphocytes % 27.3 %; Mean Corpuscular HGB Conc 33.1 g/dL (30-55); Mean Corpuscular Hemoglobin 32.1 pg (27-33); Mean Corpuscular Volume 96.9 fl (82-101); Mean Platelet Volume 9.9 fL (7.4-10.4); Monocytes # 0.8 10^3/uL (0.2-0.9); Monocytes % 9.3 %; Neutrophils # 5.04 10^3/uL (1.8-7.7); Neutrophils % 57.7 %; Nucleated Red Blood Cells % 0 %; Platelet Count 208 10^3/cmm (157-399); Red Blood Count 4.24 10^6/uL (3.85-5.65); Red Cell Distribution Width 12.6 % (12.1-15.1); White Blood Count 8.73 10^3/uL (3.29-11.43)
[2024-05-23 05:46] VITALS: PULSE 51
[2024-05-23 06:27] LABS: Anion Gap 11.4 (5-19); Blood Urea Nitrogen 19 mg/dL (8-23); Calcium 8.9 mg/dL (8.5-10.5); Carbon Dioxide 26 mmol/L (22-29); Chloride 105 mmol/L (98-107); Creatinine Clr Calc Pharmacy 51.1888; Glucose 98 mg/dL (65-115); Osmolality Calculated 288 mOsm/kg (285-295); Potassium 4.4 mmol/L (3.5-5.1); Sodium 138 mmol/L (136-145)
[2024-05-23 08:00] VITALS: BP 139/69; PULSE 52; RESP 17; TEMP 36.4; O2SAT 96
[2024-05-23] MEDS: lisinopril 20 mg Tablet 40 MG PO (09:38)
[2024-05-23] MEDS: latanoprost 0.005% Op Soln 2.5 mL Btl 1 DROP EYE-BOTH (09:38)
--- NOTE | 2024-05-23 09:42 | PC.CHAP ---
Pastoral Care Encounter/Spiritual Assessment Type of Contact [] Declined hands assembler visit [] Patient/Family/Request visit [] Outpatient visit [] Follow-up visit [] Physician referral [] Code/Alert [x] Routine visit [] Staff referral [] Actively dying [] Patient sleeping [] Family support [] [] Out of room [] Palliative care [] [] Receiving care in room [] Pre-surgical visit [] Trauma [] Long length of stay [] ICU visit [] Other: Relational/Emotional Strength [x] Patient feels connected with others/family/visitors/staff [] Distress [] Loneliness/isolation [] Abandonment Spirituality of Patient [x] Person of Elysia [] Attends Amish of their Elysia [x] Believes in Prayer [] Reads Bible or Sikh materials [] There are Spiritual issues to be addressed Care Administrative Tech Interventions [x] Prayer [x] Active listening [] Non-anxious presence [x] Spiritual/emotional support [] Crisis/trauma care [] Spiritual counseling [] Bereavement support [] Provided bereavement packet [] Provided Bible/devotional materials [] Provided toy/stuffed animal, coloring book to patient or family member [] Provided Communion [] Anointing/[place] [] Salvation [x] Completed spiritual assessment [] Other: Impact on Illness or Injury [] Angry [] Fearful [] Anxious [] Often cries [] Exhaustion [] Unable to work [] Unable to attend church [] Unable to walk/stand [] Unable to read [] Unable to drive [] Unable to eat/drink [] Unable to sleep [] Unable to be with family [] Patient intubated [] Other: Summary Time spent with patient 10 min Pastoral Care Encounter/Spiritual Assessment Type of Contact [] Declined hands assembler visit [] Patient/Family/Request visit [] Outpatient visit [] Follow-up visit [] Physician referral [] Code/Alert [] Routine visit [] Staff referral [] Actively dying [] Patient sleeping [] Family support [] [] Out of room [] Palliative care [] [] Receiving care in room [] Pre-surgical visit [] Trauma [] Long length of stay [] ICU visit [] Other: Relational/Emotional Strength [] Patient feels connected with others/family/visitors/staff [] Distress [] Loneliness/isolation [] Abandonment Spirituality of Patient [] Person of Elysia [] Attends Amish of their Elysia [] Believes in Prayer [] Reads Bible or Sikh materials [] There are Spiritual issues to be addressed Care Administrative Tech Interventions [] Prayer [] Active listening [] Non-anxious presence [] Spiritual/emotional support [] Crisis/trauma care [] Spiritual counseling [] Bereavement support [] Provided bereavement packet [] Provided Bible/devotional materials [] Provided toy/stuffed animal, coloring book to patient or family member [] Provided Communion [] Anointing/[place] [] Salvation [] Completed spiritual assessment [] Other: Impact on Illness or Injury [] Angry [] Fearful [] Anxious [] Often cries [] Exhaustion [] Unable to work [] Unable to attend church [] Unable to walk/stand [] Unable to read [] Unable to drive [] Unable to eat/drink [] Unable to sleep [] Unable to be with family [] Patient intubated [] Other: Summary Time spent with patient
[2024-05-23 12:10] VITALS: BP 128/75; PULSE 44; RESP 17; TEMP 36.5; O2SAT 93
--- NOTE | 2024-05-23 13:00 | USCV_ITS ---
Caleb Thomas Age: 84 Gender: M : 1940 Exam Date: 05/23/2024 12:46 Ordering Phys: Charles Sloan MD Technologist: Exam Location: [facility] [place] Indication: Assess for Chornotropic Incompetence; chest pain Rhythm: Sinus Patient History: Chest pain, Hypertension Cardiac Medications: NONE Medications in past 24 hours: NONE Contrast: Stress Results Protocol: Alok Total dose(mL): Exercise Duration (min:sec): 06:00 METS: 7.0 Resting HR: 82 Resting BP: 184 / 102 Peak HR: 136 Peak BP: 190 / 103 Max Predicted HR: 136 100 % Max Predicted HR Target HR: 116 Double Product: [id number] Stress Summary: The patient's target heart rate was achieved BP Response: Abnormal increase in BP during/after stress Reason for Termination: Test terminated after reaching target heart rate (85% max predicted), Maximal effort/unable to continue Cardiac Symptoms: None ECG Analysis Resting ECG: Stress ECG: Arrhythmia: MEASUREMENTS (Male/Female) Normal Values FINDINGS Baseline: At rest left ventricular ejection fraction appeared to be normal and 55%, no wall motion abnormality Peak exercise level: Left ventricle cavity augmentation appeared to be good without any wall motion abnormality Recovery: No wall motion abnormality noted CONCLUSIONS Echocardiographic portion of the stress echo is not suggestive of ischemia Chaitanya Tang MD (Electronically Signed) Final Date: 23 May 2024 17:57 S
[2024-05-23 13:33] VITALS: BP 154/82; PULSE 70
[2024-05-23 15:57] VITALS: BP 145/65; PULSE 86; RESP 16; TEMP 36.8; O2SAT 95
--- NOTE | 2024-05-23 16:44 | P.PN_ITS ---
Subjective 2 Subjective: Patient was seen this morning, no acute events overnight, no lightheadedness, no dizziness, no chest pain Vitals/I&O/Wt Last Vital Signs Temp 98.3 F 05/23/24 15:57 Pulse 86 05/23/24 15:57 Resp 16 05/23/24 15:57 BP 145/65 05/23/24 15:57 Pulse Ox 95 05/23/24 15:57 O2 Del Method Room Air 05/23/24 15:57 Weight last 48 hrs Weight 68.039 kg Weight 68.039 kg Weight 68.039 kg Physical Exam 2 Const: COMMON NORMALS: no acute distress and patient oriented x3 Resp: COMMON NORMALS: normal respiratory effort, No retractions, No use of accessory muscles and clear to auscultation bilaterally AUSCULTATION: clear to auscultation bilaterally Cardio: COMMON NORMALS: regular rhythm, S1 normal heart sound present and S2 normal heart sound present RATE: bradycardic RHYTHM: regular rhythm H EART SOUNDS: S1 normal heart sound present and S2 normal heart sound present GI: COMMON NORMALS: Normal to inspection, nondistended, normoactive bowel sounds present, Soft to palpation and non-tender PALPATION: Yes Soft to palpation Extremity: COMMON NORMALS: no pedal edema Neuro: COMMON NORMALS: patient oriented x3 Psych: COMMON NORMALS: mental status grossly normal Data 05/23/24 05:05 05/23/24 05:05 A&P Assessment and plan (1) Bradycardia: (2) Symptomatic PVCs: Plan Bradycardia, dizziness, symptomatic PVCs -Plan -Telemetry monitoring -Serial EKGs, troponins, telemetry monitoring -Cardiac echo CONCLUSIONS Normal left ventricular size, systolic function and wall thickness, with no regional wall motion abnormalities. Left ventricular ejection fraction is estimated at 55%. Mildly thickened mitral valve. No mitral valve stenosis. Mild mitral valve regurgitation. Moderate aortic valve calcification. No aortic valve stenosis. Trace aortic valve regurgitation. There is no pericardial effusion. Right atrial pressure is around 5 mm of mercury. -TSH, mag, lipid panel WNL -Atropine as needed for heart rate less than 60, with hypotension, with symptoms -Full code -Lovenox for DVT prophylaxis -Patient is agreeable if pacemaker placement is required -Spoke to cardiology, normal stress echo today Attestations 2 Medical Necessity Statement*: Patient requires hospitalization for bradycardia Diagnoses Bradycardia R00.1 Symptomatic PVCs I49.3
--- NOTE | 2024-05-23 18:43 | P.CONIM_ITS ---
Providers/Reason For Consult 2 Consulting Physician/Specialty*: Chaitanya Tang MD Reason for Consult*: Bradycardia dizziness Requesting Physician: Dr. 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 He has noticed at multiple occasions that his heart rhythm becomes irregular at occasions, he felt dizzy while standing but did not think that he is going to pass out his pulse comes and goes most of the time when however he is standing he denies any dizziness while sitting or laying or passing out. Twelve-lead EKG was suggestive of sinus rhythm with PACs, he was monitored on the telemetry which ruled out significant bradycardia arrhythmia while awake most of the time his heart rate was into 50s, no A-fib or flutter noted on the telemetry. Electrolytes are within normal limits. Treadmill echocardiogram rule out ischemia and he was chronotropically competent he achieved 100% of the predicted heart rate. Review of Systems 2 General: Reports: 10 or more systems reviewed and unremarkable except in HPI and below Const: Denies: fever(s), chills or body aches ENMT: Denies: throat pain Card: Reports: palpitations and lightheadedness; Denies: chest pain, edema, syncope or dyspnea on exertion Resp: Denies: dyspnea or productive cough GI: Denies: abdominal pain, nausea, vomiting or diarrhea : Denies: flank pain, dysuria or urinary frequency Musc: Denies: neck pain, back pain, extremity pain or extremity swelling Skin/Breast: Denies: rash or erythema Neuro: Denies: headache(s), numbness in extremities, weakness in extremities, lack of coordination or difficulty walking Medications/Allergies Home Medications Medication Instructions Recorded Confirmed Last Taken Type meloxicam 7.5 mg tablet 7.5 mg PO DAILY arthritis, 11/14/21 05/21/2405/21/25 Rx shoulder pain #20 tabs sildenafil 100 mg tablet (Viagra) 100 mg PO DAILY PRN sexual 06/01/22 05/21/24 Unknown Rx activity #20 tabs tadalafil 20 mg tablet 20 mg PO DAILY PRN sexual activity 01/26/23 05/21/24 Unknown Rx #90 tabs mupirocin 2 % topical ointment 1 applic topical BID #22 grams 10/25/23 05/21/24 Unknown Rx lisinopril 20 mg tablet 60 mg (3 x 20 mg) .Route DAILY htn 11/19/23 05/21/24 05/21/24 Rx 90 days #270 tabs acetaminophen 325 mg tablet 650 mg PO QID PRN Pain 05/21/24 05/21/24 Unknown History (Tylenol) atorvastatin 10 mg tablet 5 mg PO DAILY 05/21/24 05/21/24 05/20/24 History ibuprofen 200 mg tablet (Advil) 600 mg PO Q6H PRN Pain 05/21/24 05/21/24 Unknown History latanoprost 0.005 % eye drops 1 drp ophthalmic (eye) QPM 05/21/24 05/21/24 05/20/24 History omeprazole 20 mg capsule,delayed 20 mg PO DAILY 05/21/24 05/21/24 05/21/24 History release Allergies Allergy/AdvReac Type Severity Reaction Status Date / Time No Known Allergies Allergy Unverified 06/29/23 09:24 Current Medications Generic Name Dose Route Start Last Admin Trade Name Freq PRN Reason Stop Dose Admin Atorvastatin Calcium 10 mg 05/21/24 21:00 05/22/24 20:25 Atorvastatin 40 Mg Tablet PO 10 mg BEDTIME CHUCKY Administration Enoxaparin Sodium 40 mg 05/21/24 19:39 05/22/24 17:41 Enoxaparin 40 Mg/0.4 Ml Syringe SUBCUT 40 mg Q24H CHUCKY Administration Latanoprost 1 drop 05/22/24 18:00 05/23/24 17:40 Latanoprost 0.005% Op Soln 2.5 Ml Btl EYE-BOTH Not Given QPM CHUCKY Lisinopril 40 mg 05/22/24 09:00 05/23/24 09:38 Lisinopril 20 Mg Tablet PO 40 mg DAILY CHUCKY Administration Pantoprazole Sodium 40 mg 05/21/24 19:39 05/22/24 17:41 Pantoprazole 40 Mg Sdv IVP 40 mg Q24H CHUCKY Administration PFSH Acute 2 PFSH: Medical History Arthritis Glaucoma HTN (hypertension) Hyperlipidemia GERD (gastroesophageal reflux disease) Urolithiasis Erectile disorder due to medical condition in male Surgical History Hx of colonoscopy 10 yrs ago History of esophagogastroduodenoscopy (EGD) 10 yrs ago possibly History of extraction of renal calculus S/P AAA repair Family History Father , AGE 74 Cancer Mother , at age 84 No problems noted. 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 HEART: Regular S1 and S2. No murmur, rub or gallop. LUNGS: Clear to auscultate bilaterally. CENTRAL NERVOUS SYSTEM: Grossly nonfocal. EXTREMITIES: Lower extremities with out edema bilaterally. Data 05/23/24 05:05 05/23/24 05:05 A&P Assessment and plan (1) Bradycardia: (2) Dizziness: (3) Hypertension: (4) Irregular heartbeat: Plan On telemetry no significant bradycardia or tachyarrhythmia noted, no heart block was seen. He was chronotropically competent and rule out for ischemia with stress echo. Most likely irregular heartbeat or PACs and PVCs. At this point will recommend event monitor for 30 days and follow-up with cardiology as an outpatient. Patient has been discussed in detail regarding lifestyle modification such as trying to stand up he should wait for 30 seconds and then walk once he is not dizzy. Dizziness could be secondary to vertebral basilar or labyrinth system related at this point no cardiovascular etiology is evident. After reviewing event monitor further plan will be advised. Patient is encouraged to call our clinic if he has any more symptoms. He is advised to monitor his heart rate as well. Consult Attestations 2 Medical Necessity Statement: From cardiovascular perspective patient can be discharged home Coding Level of Care Code Acute Code for [facility] Diagnoses Bradycardia R00.1 Dizziness R42 Hypertension I10 Irregular heartbeat I49.9
--- NOTE | 2024-05-24 08:19 | P.DS_ITS ---
Discharge Providers Date of Admission: 05/22/24 10:08 Date of Discharge: May 24, 2024 Attending Provider at Admission: Charles Sloan MD Attending Provider at Discharge: Charles Sloan MD Diagnoses at Discharge Discharge Diagnosis (1) Bradycardia: Status: Acute (2) Dizziness: Status: Resolved (3) Hypertension: Status: Acute (4) Irregular heartbeat: Status: Acute Reason for Visit Reason for Visit: dizziness Hospital Course Hospital Course Caleb Thomas is a 84 year old male with a past medical history of hypertension, hyperlipidemia history of bradycardia who presents to [facility] due to dizziness, unsteadiness. Patient tells me that he is very physically active, he was in the he has always been told that he has bradycardia, there has been discussions in the past about pacemaker placement in the past, which he has fought against, but he is always done well nonetheless, he has required some hospitalizations for bradycardia but always did well he tells me. He tells me that for the last 2 days he has been having dizziness, intermittently, but becoming more progressive and significant, no syncope, but feeling of a skipped beat, feeling dizzy, more profound when changing position, no chest pain, no nausea, no vomiting, no headache, no blurry vision, no diaphoresis. He tells me that if he needs a pacemaker placed he is agreeable, he just wants this to be done with, as he is very physically active, he tells me on Wednesday he was cutting logs, and he wants to get back to his life he does not want this to be something that holds him back. Denies a cardiovascular history no stents placed in his heart no history of heart failure no history of strokes. Patient presented to [facility] for bradycardia, dizziness, symptomatic PVCs, monitored as inpatient -No significant bundle-branch blocks or AV blocks or arrhythmia events on telemetry monitoring as inpatient -He was relatively asymptomatic, ambulating in the hospital, normotensive -Even with his bradycardic episodes as inpatient, most significant episodes happened while he was sleeping -And with his bradycardic episodes, he was normotensive, relatively asymptomatic as inpatient -No strokelike symptoms, no facial droop, slurring words, no focal weakness, no cerebellar signs Cardiac echo -CONCLUSIONS Normal left ventricular size, systolic function and wall thickness, with no regional wall motion abnormalities. Left ventricular ejection fraction is estimated at 55%. Mildly thickened mitral valve. No mitral valve stenosis. Mild mitral valve regurgitation. Moderate aortic valve calcification. No aortic valve stenosis. Trace aortic valve regurgitation. There is no pericardial effusion. Right atrial pressure is around 5 mm of mercury. Cardiac stress echo FINDINGS Baseline: At rest left ventricular ejection fraction appeared to be normal and 55%, no wall motion abnormality Peak exercise level: Left ventricle cavity augmentation appeared to be good without any wall motion abnormality Recovery: No wall motion abnormality noted CONCLUSIONS Echocardiographic portion of the stress echo is not suggestive of ischemia -Chronotropically competent on stress echo -Discussed risk and benefits of pacemaker placement, he might require it at some point however so far his testing has been relatively within normal limits, he has been relatively asymptomatic, with his bradycardia during his hospitalization no significant symptomatology or hemodynamic compromise and his more significant episodes happened while he was sleeping -For his PVCs, he is not a candidate for any beta-omar or antiarrhythmic with bradycardia -Cardiology was consulted -As patient was relatively asymptomatic, with testing as above with him in reasonable range, no recurrent symptomatology he will be discharged with event monitor in place, with a close follow-up cardiology as outpatient ? Patient was advised if he were to have any lightheadedness or dizziness or chest pain or syncope or symptomatic bradycardia come to the emergency room Physical Exam Const: COMMON NORMALS: no acute distress and patient oriented x3 Neck/C-Spine: COMMON NORMALS: no JVD Resp: COMMON NORMALS: normal respiratory effort, No retractions, No use of accessory muscles and clear to auscultation bilaterally AUSCULTATION: clear to auscultation bilaterally Cardio: COMMON NORMALS: no JVD, regular rhythm, S1 normal heart sound present and S2 normal heart sound present RATE: bradycardic RHYTHM: regular rhythm HEART SOUNDS: S1 normal heart sound present and S2 normal heart sound present GI: COMMON NORMALS: Normal to inspection, nondistended, normoactive bowel sounds present and non-tender Extremity: COMMON NORMALS: no pedal edema Neuro: COMMON NORMALS: patient oriented x3 Psych: COMMON NORMALS: mental status grossly normal Discharge Data Studies Completed and Pending Completed Studies During Hospitalization Category Date Time Status Cardiac Stress Test Request Routine Exams 05/23/24 06:26 Completed XR chest 1V portable [id number] Stat Exams 05/21/24 11:07 Completed CV. echo complete* [id number] Stat Ultrasound 05/21/24 14:13 Completed CV. echo stress wo contr [id number] Routine Ultrasound 05/23/24 13:00 Completed Pending at discharge Category Date Time Status Cardiac Stress Test Request Routine Exams 05/22/24 10:57 Stop Req Radiology Impressions Chest X-Ray 05/21/24 11:07 IMPRESSION: No acute cardiopulmonary process. Laboratory Results WBC 8.73 10^3/uL (3.29-11.43) 05/23/24 05:05 RBC 4.24 10^6/uL (3.85-5.65) 05/23/24 05:05 Hgb 13.60 g/dL (11.27-16.99) 05/23/24 05:05 Hct 41.1 % (37-53) 05/23/24 05:05 MCV 96.9 fl (82-101) 05/23/24 05:05 MCH 32.1 pg (27-33) 05/23/24 05:05 MCHC 33.1 g/dL (30-55) 05/23/24 05:05 RDW 12.6 % (12.1-15.1) 05/23/24 05:05 Plt Count 208 10^3/cmm (157-399) 05/23/24 05:05 MPV 9.9 fL (7.4-10.4) 05/23/24 05:05 Neut % (Auto) 57.7 % 05/23/24 05:05 Lymph % (Auto) 27.3 % 05/23/24 05:05 [place] % (Auto) 9.3 % 05/23/24 05:05 Eos % (Auto) 4.5 % 05/23/24 05:05 Baso % (Auto) 0.9 % 05/23/24 05:05 Neut # (Auto) 5.04 10^3/uL (1.8-7.7) 05/23/24 05:05 Lymph # (Auto) 2.4 10^3/uL (0.8-4.8) 05/23/24 05:05 [place] # (Auto) 0.8 10^3/uL (0.2-0.9) 05/23/24 05:05 Eos # (Auto) 0.4 10^3/uL (0.0-0.8) 05/23/24 05:05 Baso # (Auto) 0.1 10^3/uL (0.0-0.1) 05/23/24 05:05 Nucleated RBC % (auto) 0 % 05/23/24 05:05 Nucleated RBCs # 0.0 /100WBC 05/23/24 05:05 Sodium 138 mmol/L (136-145) 05/23/24 05:05 Potassium 4.4 mmol/L (3.5-5.1) 05/23/24 05:05 Chloride 105 mmol/L (98-107) 05/23/24 05:05 Carbon Dioxide 26 mmol/L (22-29) 05/23/24 05:05 Anion Gap 11.4 (5-19) 05/23/24 05:05 BUN 19 mg/dL (8-23) 05/23/24 05:05 Creatinine 1.1 mg/dL (0.7-1.2) 05/23/24 05:05 GFR Calculation Not Reportable 05/23/24 05:05 Glucose 98 mg/dL (65-115) 05/23/24 05:05 Estimat Average Glucose 117 05/21/24 11:10 Hemoglobin A1c 5.7 % (4.0-6.0) 05/21/24 11:10 Calculated Osmolality 288 mOsm/kg (285-295) 05/23/24 05:05 Calcium 8.9 mg/dL (8.5-10.5) 05/23/24 05:05 Magnesium 1.9 mg/dL (1.7-2.3) 05/22/24 04:36 Total Bilirubin 0.4 mg/dL (0.15-1.2) 05/21/24 11:10 AST 19 U/L (0-40) 05/21/24 11:10 ALT 12 U/L (0-41) 05/21/24 11:10 Alkaline Phosphatase 97 U/L (40-130) 05/21/24 11:10 Troponin T Baseline 12 ng/L (0-15) 05/21/24 11:10 Troponin T 120 Minute 13.32 ng/L (0-15) 05/21/24 13:05 Delta Troponin T 1.32 ABS# (0-10) 05/21/24 13:05 Troponin T Hi Sens 6Hr 12.78 ng/L (0-15) 05/21/24 16:53 Troponin T Hi Sens 6Hr Delta 0.78 ng/L (0-12) 05/21/24 16:53 NT-Pro-B Natriuret Pep 158 pg/mL (0-450) 05/21/24 14:20 Total Protein 7.0 g/dL (6.6-8.7) 05/21/24 11:10 Albumin 4.2 g/dL (3.5-5.2) 05/21/24 11:10 Globulin 2.8 g/dL (1.3-4.6) 05/21/24 11:10 Triglycerides 88 mg/dL (0-150) 05/21/24 11:10 Cholesterol 137 mg/dL (0-200) 05/21/24 11:10 LDL Cholesterol, Calc 71 mg/dL (50-129) 05/21/24 11:10 HDL Cholesterol 48 mg/dL (60-100) L 05/21/24 11:10 LDL/HDL Ratio 1.48 RATIO (0.00-3.22) 05/21/24 11:10 Cholesterol/HDL Ratio 2.85 mg/dL (1.0-5.00) 05/21/24 11:10 TSH 3.21 uIU/mL (0.27-4.20) 05/21/24 11:10 Urine Color Yellow (Yellow) 05/21/24 12:30 Urine Appearance Clear (CLEAR) 05/21/24 12:30 Urine pH 5.5 (5-7) 05/21/24 12:30 Ur Specific [place] 1.022 (1.005-1.030) 05/21/24 12:30 Urine Protein 1+ (Negative) A 05/21/24 12:30 Urine Glucose (UA) Negative (Normal) 05/21/24 12:30 Urine Ketones Negative (Negative) 05/21/24 12:30 Urine Blood Negative (Negative) 05/21/24 12: Urine Nitrate Negative (Negative) 05/21/24 12:30 Urine Bilirubin Negative (Negative) 05/21/24 12:30 Urine Urobilinogen 0.2 mg/dL (Negative) 05/21/24 12:30 Ur Leukocyte Esterase Negative (Negative) 05/21/24 12:30 Urine RBC 0-2 /hpf (0-2) 05/21/24 12:30 Urine WBC 0-5 /hpf (0-5) 05/21/24 12:30 Ur Squamous Epith Cells 0-5 /hpf (0-5) 05/21/24 12:30 Amorphous Sediment Not Reportable 05/21/24 12:30 Urine Bacteria None seen /hpf (NONE) 05/21/24 12:30 Hyaline Casts 0-4 /lpf H 05/21/24 12:30 Vitals Last Vital Signs Temp 98.3 F 05/23/24 15:57 Pulse 86 05/23/24 15:57 Resp 16 05/23/24 15:57 BP 145/65 05/23/24 15:57 Pulse Ox 95 05/23/24 15:57 O2 Del Method Room Air 05/23/24 15:57 Discharge Plan Discharge Patient Disposition: Home Condition: Stable Prescriptions: Continued meloxicam 7.5 mg tablet 7.5 mg PO DAILY Qty: 20 0RF tadalafil 20 mg tablet 20 mg PO DAILY PRN (Reason: sexual activity) Qty: 90 3RF Rx Instructions: take 30min before sexual activity; do not use more than 1 dose per 24hrs sildenafil [Viagra] 100 mg tablet 100 mg PO DAILY PRN (Reason: sexual activity) Qty: 20 12RF Rx Instructions: 1 hour before use on empty stomach. No nitroglycerin mupirocin 2 % ointment 1 applic topical BID Qty: 22 0RF lisinopril 20 mg tablet 60 mg .ROUTE DAILY 90 Days Qty: 270 1RF Rx Instructions: 60 mg daily; take up to 3 tabs a day, as needed. latanoprost 0.005 % drops 1 drp ophthalmic (eye) QPM acetaminophen [Tylenol] 325 mg Tablet 650 mg PO QID PRN (Reason: Pain) ibuprofen [Advil] 200 mg Tablet 600 mg PO Q6H PRN (Reason: Pain) atorvastatin 10 mg tablet 5 mg PO DAILY Rx Instructions: TAKE ONE TABLET BY MOUTH DAILY omeprazole 20 mg capsule,delayed release(DR/EC) 20 mg PO DAILY Rx Instructions: TAKE ONE CAPSULE BY MOUTH TWICE DAILY Discharge Orders: Discharge Order (Routine); Ordered 05/23/24 Ordered By: Charles Sloan Other Ambulatory Orders: MCT/Event Monitor 30 Days (Routine) Timeframe: 1 Day Facility: [facility] - Location: Radiology Ordered By: Charles Sloan Referrals: Chaitanya Tang MD [Physician] - 6 Weeks (Message sent to clinic for Dr Kitty monroe and for the 30 day event monitor. We have notified your physician's clinic of the need for a follow-up appointment to be scheduled. If you have not heard from them within the next 2 business days, please call them directly. ) Eric Adames, [Staff Physician] - (We have notified your physician's clinic of the need for a follow-up appointment to be scheduled. If you have not heard from them within the next 2 business days, please call them directly. ) Discharge Diet: Cardiac Discharge Activity: Resume usual activity Patient Instructions: Bradycardia, Opioid Safety Discharge Attestations Time Spent in Discharge Care*: greater than 30 min Quality Metrics Clinical Quality Measures [ No reported AMI, CVA or VTE this stay] Coding Level of Care Code 28964 Total time (in minutes) for Discharge: 45 Diagnoses Bradycardia R00.1 Dizziness R42 Hypertension I10 Irregular heartbeat I49.9
== END 2024-05-23 19:37 | disposition home or self-care (01) | DRG 310 ==
LOC: ER 13:33 → ER IP 15:59 → MEDSURG 19:01
PROVIDERS: Admitting Provider Family Medicine; Emergency Provider Emergency Medicine; Visit Provider Family Medicine
DX: I49.3 Ventricular premature depolarization (principal); R00.1 Bradycardia, unspecified; I10 Essential (primary) hypertension; E78.5 Hyperlipidemia, unspecified; K21.9 Gastro-esophageal reflux disease without esophagitis; M19.90 Unspecified osteoarthritis, unspecified site
CPT/HCPCS: 36415; 71045; 80048; 80053; 80061; 81001; 83036; 83735; 83880; 84443; 84484; 85025; 93005; 93017; 93306; 93350; 96372; 99285; G0378; J1650; J2470

== ENCOUNTER → 2024-07-11 09:40 | Outpatient (BNVA) | payer MEDICARE, BC, SELFPAY | PROVIDERS: PCP Family Medicine; Visit Provider Internal Medicine Cardiovascular Disease | DX: I49.3 Ventricular premature depolarization (principal); R00.1 Bradycardia, unspecified; I47.20 Ventricular tachycardia, unspecified; I10 Essential (primary) hypertension; I49.8 Other specified cardiac arrhythmias | CPT/HCPCS: 99213 ==

== ENCOUNTER → 2024-10-31 12:28 | Outpatient (BNVA) | payer MEDICARE, BC, SELFPAY | PROVIDERS: PCP Family Medicine; Visit Provider Family Medicine | DX: I10 Essential (primary) hypertension (principal); M54.9 Dorsalgia, unspecified; N20.0 Calculus of kidney | CPT/HCPCS: 81000 ==

== ENCOUNTER 2025-03-07 08:31 | Outpatient (CLI) | payer MEDICARE, BC, SELFPAY ==
--- NOTE | 2025-03-07 08:45 | MR_ITS ---
WS: [id number] MRI LEFT SHOULDER NONCONTRAST TECHNIQUE: Sagittal T2, coronal T1, T2 and proton density imaging. Axial gradient PDE imaging. CLINICAL INFORMATION: M67.919 - Unspecified disorder of synovium and tendon, un... COMPARISON: None. FINDINGS: Advanced arthritis at the AC joint. Mild downsloping acromion. Subacromial spurring. Impingement on the underlying supraspinatus. High-grade complete tear of the supraspinatus with tendon retraction to the level of the AC joint. Tendinopathy infraspinatus with chronic thinning. Partial thickness tears deep to the tip of the acromion and distal infraspinatus. Teres minor appears intact. Subscapularis tendon appears intact. Tendinopathy subscapularis tendon. Biceps tendon appears intact within the bicipital groove with slight medial subluxation along the proximal bicipital groove. Intra- articular biceps tendon appears intact. Degenerative fraying of the glenoid labrum. Degenerative narrowing of the glenohumeral articulation. Fluid in the subcoracoid bursa. MR/MR shoulder LT wo con* [id number] IMPRESSION: 1. High-grade full-thickness tear of the supraspinatus with retraction to the level of the AC joint. 2. Tendinopathy infraspinatus with chronic thinning. Partial-thickness tears i nvolving the distal infraspinatus. 3. Tendinopathy subscapularis tendon. 4. Medial subluxation of the proximal biceps tendon along the bicipital groove . 5. Intra-articular biceps tendon appears intact.
== END 2025-03-07 08:32 | disposition home or self-care (01) ==
PROVIDERS: PCP Family Medicine; Visit Provider Family Medicine
DX: M75.102 Unspecified rotator cuff tear or rupture of left shoulder, not specified as traumatic (principal); M67.814 Other specified disorders of tendon, left shoulder; S46.812A Strain of other muscles, fascia and tendons at shoulder and upper arm level, left arm, initial encounter; S43.082A Other subluxation of left shoulder joint, initial encounter; X58.XXXA Exposure to other specified factors, initial encounter; M19.012 Primary osteoarthritis, left shoulder; M77.8 Other enthesopathies, not elsewhere classified; R93.7 Abnormal findings on diagnostic imaging of other parts of musculoskeletal system
CPT/HCPCS: 73221

== ENCOUNTER 2025-03-29 07:52 | Outpatient (CLI) | payer MEDICARE, BC, SELFPAY ==
--- NOTE | 2025-03-29 08:30 | CTR_ITS ---
PROCEDURE INFORMATION: Exam: CTA Chest With Contrast Exam date and time: 03/29/2025 9:08 AM Age: 85 years old Clinical indication: Condition or disease; Other: Aortic aneurysm of unspecified site, without rupture; Prior surgery; Surgery date: 6+ months; Surgery type: Aortic repair 20+ years ago. Iv; Additional info: I71.9 - aortic aneurysm of unspecified site, without rupture TECHNIQUE: Imaging protocol: Computed tomographic angiography of the chest with contrast. Exam focused on the arteries. 3D rendering (Not supervised by radiologist): MIP and/or 3D reconstructed images were created by the technologist. Radiation optimization: All CT scans at this facility use at least one of these dose optimization techniques: automated exposure control; mA and/or kV adjustment per patient size (includes targeted exams where dose is matched to clinical indication); or iterative reconstruction. Contrast material: OMNI 350; Contrast volume: 100 ml; Contrast route: INTRAVENOUS (IV); COMPARISON: CR XR chest 1V portable [id number] 05/21/2024 11:13 AM RADIATION DOSE METRICS: Total DLP (mGy-cm): 447.72 FINDINGS: Pulmonary arteries: Normal. No pulmonary emboli. Aorta: Elongation and tortuosity of the thoracic aorta without aneurysm or dissection. Lungs: Unremarkable. No consolidation. No masses. Pleural spaces: Unremarkable. No pneumothorax. No pleural effusion. Heart: Unremarkable. No cardiomegaly. No pericardial effusion. Coronary arteries: Coronary artery calcifications. Lymph nodes: Calcified granuloma and calcified lymph nodes within the lungs. Visible central lymph nodes are not pathologically enlarged. Liver: Calcified splenic and hepatic granulomata. Bones/joints: Right shoulder replacement. Soft tissues: Prior chest wall surgery. CT/CT angio chest [id number] IMPRESSION: Tortuosity and elongation of the thoracic aorta without aneurysm or dissection.
[2025-03-29] MEDS: iohexol 350 mg/mL 500 mL Btl (per mL) IV (09:15)
[2025-03-29 09:18] LABS: Blood Urea Nitrogen 24 mg/dL (8-23)
== END 2025-03-29 07:53 | disposition home or self-care (01) ==
LOC: RAD 07:53
PROVIDERS: PCP Family Medicine; Visit Provider Family Medicine
DX: I71.9 Aortic aneurysm of unspecified site, without rupture (principal); R93.89 Abnormal findings on diagnostic imaging of other specified body structures; I25.10 Atherosclerotic heart disease of native coronary artery without angina pectoris; I89.8 Other specified noninfective disorders of lymphatic vessels and lymph nodes; D73.89 Other diseases of spleen; K76.89 Other specified diseases of liver; Z96.611 Presence of right artificial shoulder joint; Z98.890 Other specified postprocedural states
CPT/HCPCS: 71275; 82565; 84520

== ENCOUNTER → 2025-04-24 10:14 | Outpatient (BNVA) | payer MEDICARE, BC, SELFPAY | PROVIDERS: PCP Family Medicine; Visit Provider Student in an Organized Health Care Education/Training Program | DX: M75.102 Unspecified rotator cuff tear or rupture of left shoulder, not specified as traumatic (principal); M75.42 Impingement syndrome of left shoulder | CPT/HCPCS: 20610; 73030; 99204; J3301; J9999 ==